=== PATIENT | female | born 1975 | race Two or more races ===

== ENCOUNTER 2024-03-21 14:29 | Emergency (ER) | payer BC, SELFPAY ==
[2024-03-21] VITALS (9 sets, daily range): BP systolic 95–143; BP diastolic 63–98; PULSE 83–115; RESP 13–20; TEMP 36.1–36.7; O2SAT 98–100; BMI 37.4
--- NOTE | 2024-03-21 14:30 | PC.NURSE ---
ARRIVED AT 1428. C/O NASAL BLEEDING FOR 2 HOURS. NASAL CLAMP PUT ON AT THE TRIAGE DESK BEFORE PT BROUGHT BACK TO ROOM 5
[2024-03-21] MEDS: SODIUM CHLORIDE 0.9% 1000 ML 1,000 ML 999 ML IV (15:00)
[2024-03-21] MEDS: OXYMETAZOLINE NAS SPRY 0.05% 15 ML BTL 2 SPRAY NASAL (15:14)
--- NOTE | 2024-03-21 15:14 | PC.NURSE ---
Addendum entered by Danielle Paul RN 03/21/24 15:40: RN reported to Hortencia Winters NP that pt still having moderate epistaxis on both nares at this time; Hortencia Winters [employer] at bedside, applying nasal packaging with Afrin on L nares at this time. Original Note: RN at bedside with [employer] Hortencia Winters Pt still having bilateral epistaxis, with worse epistaxis on the R nares. Nasal packaging with Afrin applied on R nares at this time.
[2024-03-21 15:27] LABS: Basophils # (Auto) 0.1 Thou/mm3 (0.0-0.2); Basophils % (Auto) 0 % (0-2.5); Eosinophils # (Auto) 0.3 Thou/mm3 (0.0-0.5); Eosinophils % (Auto) 2 % (0-10); Hematocrit 32.8 % (36.0-46.0); Hemoglobin 11.1 g/dL (12.0-16.0); Immature Granulocytes % (Auto) 1 % (0-0); Immature Granulocytes Auto 0.08 Thou/mm3 (0.00-0.00); Lymphocytes # (Auto) 5.3 Thou/mm3 (1.0-4.8); Lymphocytes % (Auto) 37 % (10-50); Mean Corpuscular HGB Conc 33.8 g/dl (31.0-37.0); Mean Corpuscular Hemoglobin 29.4 pg (25.0-35.0); Mean Corpuscular Volume 87 fL (80-100); Monocytes % (Auto) 7 % (0-12); Neutrophils # (Auto) 7.8 Thou/mm3 (1.8-7.7); Neutrophils % (Auto) 54 % (37-80); Nucleated Red Blood Cell % 0 /100 WBC (0); Platelet Count 374 Thou/mm3 (140-440); RDW Standard Deviation 41.3 fL (36.4-46.3); Red Blood Count 3.78 Miln/mm3 (4.00-5.20); White Blood Count 14.5 Thou/mm3 (3.6-11.0)
--- NOTE | 2024-03-21 15:30 | PC.NURSE ---
RN clarified with Hortencia Winters NP at this time if provider would like to order Tranexamic acid medication for pt; per Hortencia Winters NP, no Tranexamic acid to be give to pt at this time. Only pull out Afrin nasal spray for now.
[2024-03-21 15:33] LABS: Alanine Aminotransferase 19 U/L (10-49); Albumin, Serum 4.1 gm/dL (3.5-5.0); Albumin/Globulin Ratio 1.6 (1.2-2.2); Alkaline Phosphatase 94 U/L (46-116); Anion Gap 10 (7-16); Aspartate Amino Transferase 23 U/L (0-34); BUN/Creatinine Ratio 11 Ratio (12-20); Bilirubin,Total 0.9 mg/dL (0.3-1.2); Blood Urea Nitrogen 10 mg/dL (9-23); Chloride 107 mMol/L (98-107); Creatinine (Component) 0.9 mg/dL (0.6-1.3); Estimated Creatinine Clearance 90.5 mL/min (>60); Globulin 2.6 gm/dL (2.3-3.5); Glucose 176 mg/dL (74-106); Osmolality,Calculated 276 (275-295); Potassium 3.2 mMol/L (3.4-5.1); Sodium 137 mMol/L (136-145); Total Protein 6.7 gm/dL (5.7-8.2); eGFR > 60 See Note
[2024-03-21 15:34] LABS: Prothrombin Time 11.1 Seconds (9.0-12.2)
--- NOTE | 2024-03-21 15:48 | PD.EDEPIST ---
ED Epistaxis RME/HPI General Chief complaint: Epistaxis/Nasal Foreign Body Stated complaint: BLEEDING FROM NOSE, SEIZURE, VOMITING Time Seen by Provider: 03/21/24 14:31 Arrival date/time: 03/21/24 14:29 This is a 48 year old female that comes in with complaints of nosebleed. In triage there was question if patient had a possible seizure. Patient awake during the entire time that she was seen in the emergency room. Patient was pale in triage when nose is bleeding. Per patient has been patient was shaking. Patient extremely anxious upon arrival. Patient reports patient had surgery 20 February to repair a deviated septum. Patient states that she was having nosebleeds here and there but they would resolve. Patient states last night she started having a nosebleed and she finally got to stop at night. Patient stated this morning she started having a nosebleed and could not get it to stop. Patient reports that she use Afrin but it still did not stop. Patient has a history of requiring oxygen sometimes at home if her oxygen saturations drop. Patient states that she was never diagnosed with anything but was just told to use oxygen if she needs it at home. Patient also reports history of migraine headaches. Related Data Home Medications ?Medication ?Instructions ?Recorded ?Confirmed montelukast 10 mg tablet 10 mg PO QPM 09/16/19 02/03/24 (Singulair) omeprazole 40 mg capsule,delayed 40 mg PO DAILY 09/16/19 02/03/24 release rizatriptan 10 mg tablet (Maxalt) 10 mg PO Q2H PRN Migraine Headache 09/16/19 02/03/24 albuterol sulfate 2.5 mg/3 mL 2.5 mg continuous nebulization 02/03/24 02/03/24 (0.083 %) solution for nebulization DAILY PRN Wheezing azelastine 137 mcg (0.1 %) nasal 1 spray intranasal DAILY 02/03/24 02/03/24 spray epinephrine 0.3 mg/0.3 mL See Rx Instructions .Route .COMPLEX 02/03/24 02/03/24 injection, auto-injector fluticasone fur. 200 mcg-umeclid 1 inh inhalation DAILY 02/03/24 02/03/24 62.5 mcg-vilant 25 mcg inhalat.powder (Trelegy Ellipta) Previous Rx's ?Medication ?Instructions ?Recorded albuterol sulfate 90 mcg/actuation 2 puff inhalation Q4HR PRN dyspnea 07/16/16 aerosol inhaler (ProAir HFA) #1 inh ondansetron 4 mg disintegrating 4 mg PO Q6H PRN nausea and 03/21/24 tablet vomiting #14 tabs amoxicillin 500 mg tablet 500 mg PO TID #21 tabs 03/22/24 Allergies Allergy/AdvReac Type Severity Reaction Status Date / Time dexamethasone Allergy Severe Swelling Verified 03/21/24 14:49 of Lip/Tongue/Throat methylprednisolone Allergy Severe Swelling Verified 03/21/24 14:49 of Lip/Tongue/Throat topiramate Allergy Severe Difficulty Verified 03/21/24 14:49 Breathing Review of Systems Review of Systems Systems Reviewed: All systems reviewed, normal except as documented Past Medical History Past Medical History NEUROLOGIC: Positive Neurological Disorders and Migraine; Negative Seizures CARDIAC: Negative Cardiac Disorders or Congestive Heart Failure RESPIRATORY: Positive Chronic Obstructive Pulmonary Disease (COPD), Asthma and Bronchitis GASTROINTESTINAL: Positive Gastrointestinal Disorders, Gall Bladder Disease (LAP 06/2019) and Gastroesophageal Reflux Disease (HAS OMEPRAZOLE); Negative Hepatitis GENITOURINARY: Negative Genitourinary Disorders or Renal Disease REPRODUCTIVE: Positive Endometriosis and Previous Pregnancies MUSCULOSKELETAL: Positive Musculoskeletal Disorders ENDOCRINE: Negative Endocrine Disorders, Diabetes Mellitus Type 1 or Diabetes Mellitus Type 2 HEMATOLOGIC: Negative Blood Disorders OTHER HISTORY: 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,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)) and Chicken Pox; Negative Hospitalization, Shingles, Falls, Blood Transfusions, Anesthesia Reactions, Chemotherapy, Radiation Therapy, MRSA, Measles, Mumps or Cancer Family History FAMILY HISTORY: Positive Family Respiratory Disorders (FATHER (COPD)), Family Cardiac Disorders (FATHER (TN,HTN,CHOLESTEROL),SISTER (PROLAPSED VALVE)), Family Gastrointestinal Problems (MOTHER (ULCER)), Family Cancer (MOTHER (BLADDER),SISTER (THYROID)) and Family Surgery (FATHER,MOTHER,SISTER); Negative Family Psychiatric Problems or Family Anesthesia Reaction Surgical History SURGICAL: Positive Hysterectomy (PATIAL), Tubal Ligation and Section; Negative Cardiac Surgery Social History SMOKING STATUS: Never smoker ED Exam General General appearance: Present alert and other (mild distress ) Head Head exam: Present atraumatic Eye Eye exam: Present normal appearance, PERRL and EOMI ENT ENT exam: Present mucous membranes moist and other (nasel passages slightly swollen and erythemic, bleeding out of both sides ) Neck Neck exam: Present normal inspection, full ROM and trachea midline Chest Chest inspection: Present normal inspection and symmetric chest wall rise Respiratory Respiratory exam: Present normal lung sounds bilaterally Cardiovascular Cardiovascular exam: Present regular rate, normal rhythm and normal heart sounds Abdominal Exam Abdominal exam: Present soft and other (soft nontender ) Extremities Exam Extremities exam: Present normal inspection and full ROM Back Exam Back exam: Present normal inspection and full ROM Neurological Exam Neurological exam: Present alert and oriented X3 Psychiatric Psychiatric exam: Present normal affect and normal mood Skin Skin exam: Present warm, dry, intact and normal color Course Quality Measures none Orders Category Date Time Status CBC Stat Lab 03/21/24 15:05 Completed CBC Stat Lab 03/21/24 18:26 Completed Comprehensive Metabolic Panel Stat Lab 03/21/24 15:05 Completed PT [Prothrombin Time with INR] Stat Lab 03/21/24 15:05 Completed Path Review Blood Smear Stat Lab 03/21/24 15:05 Completed Type and Screen Stat Lab 03/21/24 16:00 Completed Acetaminophen Tab [Tylenol ES Tab] Med 03/21/24 19:55 Discontinued 1,000 mg PO X1 ONE Ondansetron Inj [Zofran Inj] Med 03/21/24 22:51 Discontinued 4 mg IV X1 ONE Oxymetazoline [place] 0.05% [Afrin Nasal [place]] Med 03/21/24 15:09 Discontinued 2 spray NASAL X1 ONE Oxymetazoline [place] 0.05% [Afrin Nasal [place]] Med 03/21/24 15:00 Discontinued See Dose Instructions NASAL X1 ONE Sodium Chloride 0.9% 1000 ml [Ns] 1,000 ml Med 03/21/24 15:00 Discontinued IV 999 mls/hr Tranexamic Acid 1,000 mg Ivpb [Tranexamic Acid Ivpb] Med 03/21/24 20:53 Discontinued 1,000 mg in 100 ml IV PRNMRX1 ceFAZolin/D5W 2 GM IV [Ancef 2gm Ivpb] Med 03/21/24 16:02 Discontinued 2 gm in 100 ml IV X1 Vital Signs Vital signs: Vital Signs Temperature 97 F 03/21/24 14:29 Pulse Rate 115 H 03/21/24 14:29 Respiratory Rate 19 03/21/24 14:29 Blood Pressure 119/98 H 03/21/24 14:29 Pulse Oximetry (%) 99 03/21/24 14:29 Oxygen Delivery Method Room Air 03/21/24 14:29 Epistaxis MDM Narrative MDM Narrative:: This is a 48 year old female that comes in with complaints of nosebleed. In triage there was question if patient had a possible seizure. Patient awake during the entire time that she was seen in the emergency room. Patient was pale in triage when nose is bleeding. Per patient has been patient was shaking. Patient extremely anxious upon arrival. Patient reports patient had surgery 20 February to repair a deviated septum. Patient states that she was having nosebleeds here and there but they would resolve. Patient states last night she started having a nosebleed and she finally got to stop at night. Patient stated this morning she started having a nosebleed and could not get it to stop. Patient reports that she use Afrin but it still did not stop. Patient has a history of requiring oxygen sometimes at home if her oxygen saturations drop. Patient states that she was never diagnosed with anything but was just told to use oxygen if she needs it at home. Patient also reports history of migraine headaches. Initially upon arrival, direct pressure held on nose to stop bleeding. Held pressure 2 different times 2 minutes each time and no success. I used afrin and placed right rhinorocket inside. Pt nose still bleeding. I had to place rhino rocket on the other side. Observed patient for a few hours. Pt given tylenol for pain and was given 1 liter iv fluids. Pt felt better. Nose was oozing. Pt having clots to the back of throat. After a few hours with rhino rockets I released pressure on the right rhino rocket. NO bleeding noted. I then did the same for the other side. I was able to remove bilateral rhino rockets. No more bleeding noted. Pt felt better. 155 I called [facility]. He stated he would prefer if patient didnt have bilateral rhino rockets if possible. He recommended antibiotics and stated he would see patient on Saturday morning first thing in the morning Labs show wbc 14.5 and hgb 11.1 initially and repeat 10.7. Pt was given iv fluids 1 liter. Pt was also given a dose of ancef 2gm iv. After rhino rockets removed we obseved patient for 2 hours and no more bleeding noted. Pt told to follow up as scheduled with ENT. Pt comfortable with dc. Patient data External records reviewed:: [facility] [place] previous records Clinical information provided by:: patient Social determinants that could affect healthcare access:: none Patient has the following chronic illnesses:: migraines How is presenting disease/condition affected by chronic disease/condition?: no chronic disease Evaluation data The following diagnostics were reviewed and interpreted by me:: lab results Lab and/or radiology exams considered but not ordered:: none Interpretation Summary: see note Medications / Prescriptions Medications or Prescriptions considered but not ordered:: none Medication administrations:: Medication Administration History Discontinued Medications Acetaminophen (Acetaminophen 500 Mg Tablet) 1,000 mg PO X1 ONE Stop: 03/21/24 19:56 Last Admin: 03/21/24 20:55 Dose: 1,000 mg Documented By: CCT Sodium Chloride (Ns) 1,000 mls @ 999 mls/hr IV .Q1H1M ONE Stop: 03/21/24 16:00 Last Infusion: 03/21/24 15:47 Dose: Infused Documented By: Admin: 03/21/24 15:00 Dose: 999 mls/hr Documented By: GM Cefazolin Sodium (Ancef 2gm Ivpb) 2 gm in 100 mls @ 200 mls/hr IV X1 ONE Stop: 03/21/24 16:31 Last Infusion: 03/21/24 17:10 Dose: Infused Documented By: Admin: 03/21/24 16:31 Dose: 200 mls/hr Documented By: GM Tranexamic Acid (Tranexamic Acid Ivpb) 1,000 mg in 100 mls @ 200 mls/hr IV [id number] PRN PRN Reason: BLEEDING Ondansetron HCl (Ondansetron Inj 2 Mg/Ml Inj 2 Ml) 4 mg IV X1 ONE; Protocol Stop: 03/21/24 22:52 Last Admin: 03/21/24 23:04 Dose: 4 mg Documented By: CCT Oxymetazoline HCl (Oxymetazoline [place] 0.05% 15 Ml Btl) 0 spray NASAL X1 ONE Stop: 03/21/24 15:01 Last Admin: 03/21/24 15:21 Dose: Not Given Documented By: GM Non-Admin Reason: Duplicate Medication on eMAR Oxymetazoline HCl (Oxymetazoline [place] 0.05% 15 Ml Btl) 2 spray NASAL X1 ONE Stop: 03/21/24 15:10 Last Admin: 03/21/24 15:14 Dose: 2 spray Documented By: KESHA Comments: Administered by Hortencia Winters NP via nasal packaging; bilateral nares see mar Consultations Consultation(s) initiated? (list below): No Diagnosis Most likely diagnosis given after review of the tests above:: epistaxis Admission Indicated Admission indicated?: not indicated Admission Request Was there a request for admission?: No Disposition Plan Disposition Plan: Discharge Discharge Attestation Discharge Attestation: The patient and all family members were given an opportunity to ask questions and understood the discharge instructions. Discharge instructions specifically effects, indications for sooner follow up or return to the emergency department, and the expected course of current diagnosis. Patient condition: Stable Discharge Plan Plan Patient Disposition: HOME (Self Care) Patient condition on transfer: Stable Prescriptions/Referrals Prescriptions/Med Rec: New ondansetron 4 mg tablet,disintegrating 4 mg PO Q6H PRN (Reason: nausea and vomiting) Qty: 14 0RF No Action albuterol sulfate [ProAir HFA] 8.5 GM HFA aerosol inhaler 2 puff Inhalation Q4HR PRN (Reason: dyspnea) Qty: 1 0RF Rx Instructions: any albuterol ok; dispense with spacer omeprazole 40 mg Capsule,Delayed Release(Dr/Ec) 40 mg PO DAILY montelukast [Singulair] 10 mg Tablet 10 mg PO QPM rizatriptan [Maxalt] 10 mg Tablet 10 mg PO Q2H PRN (Reason: Migraine Headache) albuterol sulfate 2.5 mg /3 mL (0.083 %) solution for nebulization 2.5 mg continuous nebulization DAILY PRN (Reason: Wheezing) azelastine 137 mcg (0.1 %) spray,non-aerosol 1 spray INTRANASAL DAILY Patient Comments: USE 2 SPRAYS INTO EACH NOSTRIL EVERY DAY AT BEDTIME epinephrine 0.3 mg/0.3 mL auto-injector See Rx Instructions .ROUTE .COMPLEX Patient Comments: PLEASE SEE ATTACHED FOR DETAILED DIRECTIONS Rx Instructions: as needed for allergic reaction Trelegy Ellipta 200-62.5-25 mcg blister with device 1 inh INHALATION DAILY Patient Comments: INHALE 1 PUFF BY MOUTH EVERY DAY amoxicillin 500 mg tablet 500 mg PO TID Qty: 21 0RF Referrals: Rasta Rodríguez FNP [Primary Care Provider] - In 1 week Problem List Clinical Impression: Epistaxis Patient/Caregiver Discharge Instructions Discharge Activity: activity as tolerated Education Materials: ED Epistaxis (Adult) Additional Instructions: Please follow-up with ENT as discussed 03/23/24. Please call doctors office first thing in the morning and let them know that you were in the emergency room for a nosebleed and that the emergency room spoke to who is on-call. Come back to the emergency room if symptoms change or worsen Print Language: Malay Stand Alone Forms: Kandy Award Info., Patient Portal Info Letter PA/DIRECT ENTRY MIDWIFE Supervising Physician PA/DIRECT ENTRY MIDWIFE Supervising Physician: john
[2024-03-21] MEDS: ceFAZolin/D5W 2 GM IV 2 GM/100 ML BAG IV (16:31)
--- NOTE | 2024-03-21 16:31 | PC.NURSE ---
pt had small, soft bm on bedpan
--- NOTE | 2024-03-21 17:10 | PC.NURSE ---
@1710- Pt requesting to be placed in bedpan for bowel movement; RN at bedside placing pt on bedpan. RN educated pt that RN will be stepping out fro pt's privacy and to use call light to ask for RN back when pt is done with BM. @1720- RN at bedside after noticing pt's call light is on. RN performed linen change and perineal care with bath wipes for pt.
[2024-03-21 18:59] LABS: Basophils # (Auto) 0.1 Thou/mm3 (0.0-0.2); Basophils % (Auto) 0 % (0-2.5); Eosinophils % (Auto) 0 % (0-10); Hematocrit 32.1 % (36.0-46.0); Hemoglobin 10.7 g/dL (12.0-16.0); Immature Granulocytes % (Auto) 1 % (0-0); Lymphocytes # (Auto) 1.8 Thou/mm3 (1.0-4.8); Lymphocytes % (Auto) 10 % (10-50); Mean Corpuscular HGB Conc 33.3 g/dl (31.0-37.0); Mean Corpuscular Hemoglobin 29.6 pg (25.0-35.0); Mean Corpuscular Volume 89 fL (80-100); Monocytes # (Auto) 0.7 Thou/mm3 (0.0-0.8); Monocytes % (Auto) 4 % (0-12); Neutrophils # (Auto) 15.4 Thou/mm3 (1.8-7.7); Neutrophils % (Auto) 85 % (37-80); Nucleated Red Blood Cell % 0 /100 WBC (0); Platelet Count 332 Thou/mm3 (140-440); RDW Standard Deviation 43.7 fL (36.4-46.3); Red Blood Count 3.61 Miln/mm3 (4.00-5.20); White Blood Count 18.1 Thou/mm3 (3.6-11.0)
[2024-03-21] MEDS: ACETAMINOPHEN 500 MG TABLET 1000 MG PO (20:55)
[2024-03-21] MEDS: ONDANSETRON INJ 2 MG/ML INJ 2 ML 4 MG IV (23:04)
[2024-03-22 04:36] LABS: Path Review Blood Smear Sent to Pathologist
== END 2024-03-21 23:50 | disposition home or self-care (01) ==
PROVIDERS: Nurse Practitioner Family; Emergency Provider Emergency Medicine; PCP Family Medicine
DX: R04.0 Epistaxis (principal)
CPT/HCPCS: 30901; 36415; 80053; 85025; 85610; 86850; 86900; 86901; 96361; 96365; 99284; J0689; J2405; J3490; J7030; A9270; J0690

== ENCOUNTER 2024-03-22 16:31 | Emergency (ER) | payer BC, SELFPAY ==
[2024-03-22 16:40] VITALS: BP 134/87; PULSE 144; RESP 19; TEMP 36.8; O2SAT 100
[2024-03-22 16:45] VITALS: BP 116/61; PULSE 126; RESP 16; O2SAT 100
--- NOTE | 2024-03-22 16:45 | PC.NURSE ---
pt here with c/o bleeding from nose for the past 1 hour
[2024-03-22 16:49] VITALS: PULSE 163; BMI 36.6
--- NOTE | 2024-03-22 16:50 | PC.NURSE ---
dr. thakkar in to place tongue blade clamp to nose to controll bleeding
--- NOTE | 2024-03-22 17:05 | PD.EDRME ---
Rapid Medical Screening Exam RME Arrival date/time: 03/22/24 16:31 Chief Complaint: Epistaxis/Nasal Foreign Body Time Seen by Provider: 03/22/24 17:04 Vital signs: Vital Signs Temperature 98.3 F 03/22/24 16:40 Pulse Rate 144 H 03/22/24 16:40 Respiratory Rate 19 03/22/24 16:40 Blood Pressure 134/87 H 03/22/24 16:40 Pulse Oximetry (%) 100 03/22/24 16:40 Oxygen Delivery Method Room Air 03/22/24 16:40 RME Narrative: 48-year-old female, seen yesterday for epistaxis status post nasal septal surgery who presents with recurrence of her epistaxis. She arrived by EMS due to the volume of bleeding. On exam she has slow oozing from her right nares, mucous membranes are pink and without pallor. I have completed a focused encounter and examination, appropriate focused testing has been ordered, and she will be seen by the additional provider.
--- NOTE | 2024-03-22 17:47 | PC.NURSE ---
@1747- Pt starting to bleed from bilateral nares and bilateral eyes; Dr. Villafana made aware and verbal orders received. @1750- Dr. Villafana at bedside applying nasal packaging doused with Andrew-synephrine nasal spray bilaterally. Bleeding controlled at this time.
[2024-03-22] MEDS: PHENYLEPHRINE 1% NASAL (17:50)
[2024-03-22 18:00] LABS: Basophils # (Auto) 0.1 Thou/mm3 (0.0-0.2); Basophils % (Auto) 1 % (0-2.5); Eosinophils # (Auto) 0.1 Thou/mm3 (0.0-0.5); Eosinophils % (Auto) 1 % (0-10); Hematocrit 24.6 % (36.0-46.0); Immature Granulocytes % (Auto) 1 % (0-0); Immature Granulocytes Auto 0.06 Thou/mm3 (0.00-0.00); Lymphocytes # (Auto) 2.9 Thou/mm3 (1.0-4.8); Lymphocytes % (Auto) 28 % (10-50); Mean Corpuscular HGB Conc 33.7 g/dl (31.0-37.0); Mean Corpuscular Hemoglobin 30.1 pg (25.0-35.0); Mean Corpuscular Volume 89 fL (80-100); Monocytes # (Auto) 0.8 Thou/mm3 (0.0-0.8); Monocytes % (Auto) 7 % (0-12); Neutrophils # (Auto) 6.7 Thou/mm3 (1.8-7.7); Neutrophils % (Auto) 63 % (37-80); Nucleated Red Blood Cell % 0 /100 WBC (0); Platelet Count 265 Thou/mm3 (140-440); RDW Standard Deviation 43.9 fL (36.4-46.3); Red Blood Count 2.76 Miln/mm3 (4.00-5.20); White Blood Count 10.6 Thou/mm3 (3.6-11.0)
[2024-03-22 18:03] LABS: Hemoglobin 8.3 g/dL (12.0-16.0)
[2024-03-22] MEDS: ONDANSETRON INJ 2 MG/ML INJ 2 ML 4 MG IV (18:41)
--- NOTE | 2024-03-22 18:51 | PD.EDEPIST ---
ED Epistaxis RME/HPI General Chief complaint: Epistaxis/Nasal Foreign Body Stated complaint: NOSE BLEED Time Seen by Provider: 03/22/24 17:04 Arrival date/time: 03/22/24 16:31 Limitations: no limitations RME / HPI RME / HPI Narrative: 48-year-old female, seen yesterday for epistaxis status post nasal septal surgery who presents with recurrence of her epistaxis. She arrived by EMS due to the volume of bleeding. On exam she has slow oozing from her right nares, mucous membranes are pink and without pallor. I have completed a focused encounter and examination, appropriate focused testing has been ordered, and she will be seen by the additional provider. ----- Dr. Pearson's Main ED Evaluation: 48-year-old female status post right nasal septal surgery on February [address] Octavio Mayberry in [place] presenting with nosebleeding at the right naris. The patient was seen yesterday in the emergency department for similar in which she was packed bilaterally. In the emergency department today , packed both sides and the bleeding has stopped. Patient is continued to be nauseous Related Data Home Medications ?Medication ?Instructions ?Recorded ?Confirmed montelukast 10 mg tablet 10 mg PO QPM 09/16/19 02/03/24 (Singulair) omeprazole 40 mg capsule,delayed 40 mg PO DAILY 09/16/19 02/03/24 release rizatriptan 10 mg tablet (Maxalt) 10 mg PO Q2H PRN Migraine Headache 09/16/19 02/03/24 albuterol sulfate 2.5 mg/3 mL 2.5 mg continuous nebulization 02/03/24 02/03/24 (0.083 %) solution for nebulization DAILY PRN Wheezing azelastine 137 mcg (0.1 %) nasal 1 spray intranasal DAILY 02/03/24 02/03/24 spray epinephrine 0.3 mg/0.3 mL See Rx Instructions .Route .COMPLEX 02/03/24 02/03/24 injection, auto-injector fluticasone fur. 200 mcg-umeclid 1 inh inhalation DAILY 02/03/24 02/03/24 62.5 mcg-vilant 25 mcg inhalat.powder (Trelegy Ellipta) Previous Rx's ?Medication ?Instructions ?Recorded albuterol sulfate 90 mcg/actuation 2 puff inhalation Q4HR PRN dyspnea 07/16/16 aerosol inhaler (ProAir HFA) #1 inh ondansetron 4 mg disintegrating 4 mg PO Q6H PRN nausea and 03/21/24 tablet vomiting #14 tabs amoxicillin 500 mg tablet 500 mg PO TID #21 tabs 03/22/24 Allergies Allergy/AdvReac Type Severity Reaction Status Date / Time dexamethasone Allergy Severe Swelling Verified 03/21/24 14:49 of Lip/Tongue/Throat methylprednisolone Allergy Severe Swelling Verified 03/21/24 14:49 of Lip/Tongue/Throat topiramate Allergy Severe Difficulty Verified 03/21/24 14:49 Breathing Review of Systems Review of Systems Systems Reviewed: All systems reviewed, normal except as documented Past Medical History Past Medical History NEUROLOGIC: Positive Neurological Disorders and Migraine; Negative Seizures CARDIAC: Negative Cardiac Disorders or Congestive Heart Failure RESPIRATORY: Positive Chronic Obstructive Pulmonary Disease (COPD), Asthma and Bronchitis GASTROINTESTINAL: Positive Gastrointestinal Disorders, Gall Bladder Disease (LAP 06/2019) and Gastroesophageal Reflux Disease (HAS OMEPRAZOLE); Negative Hepatitis GENITOURINARY: Negative Genitourinary Disorders or Renal Disease REPRODUCTIVE: Positive Endometriosis and Previous Pregnancies MUSCULOSKELETAL: Positive Musculoskeletal Disorders ENDOCRINE: Negative Endocrine Disorders, Diabetes Mellitus Type 1 or Diabetes Mellitus Type 2 HEMATOLOGIC: Negative Blood Disorders OTHER HISTORY: 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,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)) and Chicken Pox; Negative Hospitalization, Shingles, Falls, Blood Transfusions, Anesthesia Reactions, Chemotherapy, Radiation Therapy, MRSA, Measles, Mumps or Cancer Family History FAMILY HISTORY: Positive Family Respiratory Disorders (FATHER (COPD)), Family Cardiac Disorders (FATHER (NE,HTN,CHOLESTEROL),SISTER (PROLAPSED VALVE)), Family Gastrointestinal Problems (MOTHER (ULCER)), Family Cancer (MOTHER (BLADDER),SISTER (THYROID)) and Family Surgery (FATHER,MOTHER,SISTER); Negative Family Psychiatric Problems or Family Anesthesia Reaction Surgical History SURGICAL: Positive Hysterectomy (PATIAL), Tubal Ligation and Section; Negative Cardiac Surgery Social History SMOKING STATUS: Never smoker ED Exam Narrative Physical exam: supervises bilateral nasal packing in place patient tolerating.. Minimal to no bleeding is noted at this point. General Limitations: Present no limitations General appearance: Present alert and other (Minimal distress.) Head Head exam: Present atraumatic Eye Eye exam: Present EOMI ENT ENT exam: Present normal exam Expanded ENT Exam Nose exam: Present other (Both nasal airways are packed with Rhino Rocket's.) Mouth exam: Present other (No blood in the back of the throat. No trismus.) Neck Neck exam: Present normal inspection, full ROM and trachea midline Chest Chest inspection: Present normal inspection and symmetric chest wall rise Respiratory Respiratory exam: Present normal lung sounds bilaterally Cardiovascular Cardiovascular exam: Present regular rate, normal rhythm and normal heart sounds Abdominal Exam Abdominal exam: Present soft and normal bowel sounds Extremities Exam Extremities exam: Present normal inspection and full ROM Back Exam Back exam: Present normal inspection and full ROM Neurological Exam Neurological exam: Present alert and other (Awake talking in full sentences) Psychiatric Psychiatric exam: Present normal affect and normal mood Skin Skin exam: Present warm, dry, intact and normal color Course Quality Measures none Orders Category Date Time Status CBC Stat Lab 03/22/24 17:48 Completed PT [Prothrombin Time with INR] Stat Lab 03/22/24 20:50 Completed PTT [Partial Thromboplastin Time] Stat Lab 03/22/24 20:50 Completed Type and Screen Stat Lab 03/22/24 20:50 Completed Morphine Inj Med 03/22/24 22:57 Discontinued 2 mg IVP X1 ONE Ondansetron Inj [Zofran Inj] Med 03/22/24 18:13 Discontinued 4 mg IV X1 ONE Phenylephrine Papo Blythe 1% [Andrew-synephrine Papo Blythe 1% Med 03/22/24 17:48 Discontinued ] 2 spray NASAL X1 ONE Piper/Tazo Inj [Zosyn Inj] 3.375 gm Med 03/22/24 20:36 Pending Sodium Chloride 0.9% (P) [Ns 0.9% (P)] 50 ml IV Q6HR Piper/Tazo Inj [Zosyn Inj] 3.375 gm Med 03/22/24 21:00 Discontinued Sodium Chloride 0.9% (P) [Ns 0.9% (P)] 50 ml IV X1 Tranexamic Acid Inj Med 03/22/24 20:23 Discontinued 1,000 mg IV X1 ONE Vital Signs Vital signs: Vital Signs Temperature 98.3 F 03/22/24 16:40 Pulse Rate 144 H 03/22/24 16:40 Respiratory Rate 19 03/22/24 16:40 Blood Pressure 134/87 H 03/22/24 16:40 Pulse Oximetry (%) 100 03/22/24 16:40 Oxygen Delivery Method Room Air 03/22/24 16:40 Pulse ox is 100% on room air, which is normal according to my interpretation. Epistaxis MDM Narrative MDM Narrative:: This is a 48-year-old female status post right nasal septal surgery done in [place] on February 20 with second visit for bleeding. The patient was seen yesterday at approximately 6 PM and she had bilateral nasal packing done.. Bleeding was controlled and the nasal packing was removed. The patient went home and was doing well till this morning. The patient is slightly tachycardic at 119. Otherwise hemoglobin is 8 and hematocrit is 24. This is a slight decrease from previous when her hemoglobin was 10 On arrival to the emergency department the bilateral Rhino Rocket's were already placed by the previous ER physician. TXA is given and the patient remains stable at this time. Zosyn is given. After discussion with ENT yesterday for the next practitioner note the patient should not have bilateral Rhino Rocket's in place secondary to her nasal surgery however it appears that when she has right sided nasal bleeding it backs up and goes over to her left nasal so at this time I need to have both packed. Patient is hemodynamically stable. The patient continually requested nurse to change the tape on her face and at this time I feel that this is manipulating the packing which can cause more bleeding. TXA is given. 2100: [facility] is paged. They request that I call Dr. Schaefer. Discussed with the covering physician for ENT for Dr. Schaefer's office and at this time he feels that the packing on both sides should stay in until he sees Silvano tomorrow. Discussed with the patient. She is complaining of some pressure in her face. Will give morphine for comfort and as long as she no longer has bleeding which she is not having then we will be able to send her home. Patient data External records reviewed:: [facility] previous records (Per chart review, patient was seen here yesterday for epistaxis.) Clinical information provided by:: patient Social determinants that could affect healthcare access:: none Patient has the following chronic illnesses:: COPD, asthma How is presenting disease/condition affected by chronic disease/condition?: uneffected by Evaluation data The following diagnostics were reviewed and interpreted by me:: lab results Lab and/or radiology exams considered but not ordered:: none Interpretation Summary: HnH is 8.3.6, compared to yesterday is lower (was 10.7/32.1) Medications / Prescriptions Medications or Prescriptions considered but not ordered:: none Medication administrations:: Medication Administration History Piperacillin Sod/Tazobactam (Sod 3.375 gm/ Sodium Chloride) 50 mls @ 100 mls/hr IV Q6HR MARICRUZ Stop: 03/29/24 20:35 Discontinued Medications Piperacillin Sod/Tazobactam (Sod 3.375 gm/ Sodium Chloride) 50 mls @ 100 mls/hr IV X1 ONE Stop: 03/22/24 21:29 Last Infusion: 03/22/24 23:20 Dose: Infused Documented By: Admin: 03/22/24 22:45 Dose: 100 mls/hr Documented By: JOSE Morphine Sulfate (Morphine Sulf Inj 10 Mg/Ml Vial) 2 mg IVP X1 ONE Stop: 03/22/24 22:58 Last Admin: 03/22/24 23:16 Dose: 2 mg Documented By: JOSE Ondansetron HCl (Ondansetron Inj 2 Mg/Ml Inj 2 Ml) 4 mg IV X1 ONE; Protocol Stop: 03/22/24 18:14 Last Admin: 03/22/24 18:41 Dose: 4 mg Documented By: JOSE Phenylephrine HCl (Phenylephrine Papo Blythe 1% 20 Blythe/15 Ml Btl) 2 spray NASAL X1 ONE Stop: 03/22/24 17:49 Last Admin: 03/22/24 17:50 Dose: 15 ml Documented By: KESHA Comments: by Provider Dr. Villafana Tranexamic Acid (Tranexamic Acid Inj 1,000 Mg/10 Ml Vial) 1,000 mg IV X1 ONE Stop: 03/22/24 20:24 Last Admin: 03/22/24 20:23 Dose: 1,000 mg Documented By: JOSE see above Consultations Consultation(s) initiated? (list below): Yes Consultation #1 (Physician, Specialty, Details): Covering physician for Dr Lana Campos. He agrees with the plan and the patient can follow-up tomorrow morning for thing in the morning. Recommends amoxicillin. Diagnosis Epistaxis Differential Diagnosis: anterior epistaxis, posterior epistaxis and other (anemia) Most likely diagnosis given after review of the tests above:: see below Admission Indicated Admission indicated?: not indicated Admission Request Was there a request for admission?: No Disposition Plan Disposition Plan: Discharge Discharge Attestation Discharge Attestation: The patient and all family members were given an opportunity to ask questions and understood the discharge instructions. Discharge instructions specifically effects, indications for sooner follow up or return to the emergency department, and the expected course of current diagnosis. Patient condition: Stable Critical Care Time Critical Care Time Critical Care Time: Yes Total Critical Care Time (min.): 35 Attestation: The high probability of sudden, clinically significant deterioration in the patient?s condition required the highest level of my preparedness to intervene urgently. The services I provided to this patient were to treat and/or prevent clinically significant deterioration. Services included the following: chart data review, reviewing nursing notes and/or old charts, documentation time, construction safety consultant collaboration regarding findings and treatment options, medication orders and management, direct patient care, vital sign assessments and ordering, interpreting and reviewing diagnostic studies and lab tests. Aggregate critical care time includes only time during which I was engaged in work directly related to the patient?s care, as described above, whether at bedside or elsewhere in the Emergency Department. It did not include time spent performing other reported procedures or the services of residents, students, nurses or physician assistants. Discharge Plan Plan Patient Disposition: HOME (Self Care) Patient condition on transfer: Stable Prescriptions/Referrals Prescriptions/Med Rec: New amoxicillin 500 mg tablet 500 mg PO TID Qty: 21 0RF No Action albuterol sulfate [ProAir HFA] 8.5 GM HFA aerosol inhaler 2 puff Inhalation Q4HR PRN (Reason: dyspnea) Qty: 1 0RF Rx Instructions: any albuterol ok; dispense with spacer omeprazole 40 mg Capsule,Delayed Release(Dr/Ec) 40 mg PO DAILY montelukast [Singulair] 10 mg Tablet 10 mg PO QPM rizatriptan [Maxalt] 10 mg Tablet 10 mg PO Q2H PRN (Reason: Migraine Headache) albuterol sulfate 2.5 mg /3 mL (0.083 %) solution for nebulization 2.5 mg continuous nebulization DAILY PRN (Reason: Wheezing) azelastine 137 mcg (0.1 %) spray,non-aerosol 1 spray INTRANASAL DAILY Patient Comments: USE 2 SPRAYS INTO EACH NOSTRIL EVERY DAY AT BEDTIME epinephrine 0.3 mg/0.3 mL auto-injector See Rx Instructions .ROUTE .COMPLEX Patient Comments: PLEASE SEE ATTACHED FOR DETAILED DIRECTIONS Rx Instructions: as needed for allergic reaction Nima Ellipta 200-62.5-25 mcg blister with device 1 inh INHALATION DAILY Patient Comments: INHALE 1 PUFF BY MOUTH EVERY DAY ondansetron 4 mg tablet,disintegrating 4 mg PO Q6H PRN (Reason: nausea and vomiting) Qty: 14 0RF Referrals: Abdullahi Duenas MD [Primary Care Provider] - In 1 week Problem List Clinical Impression: S/P surgery on nasal septum, Acute anterior epistaxis Patient/Caregiver Discharge Instructions Print Language: German Stand Alone Forms: Kandy Award Info., Patient Portal Info Letter
[2024-03-22 19:22] VITALS: BP 175/99; PULSE 119; RESP 18; TEMP 37.2; O2SAT 99
[2024-03-22] MEDS: TRANEXAMIC ACID INJ 1,000 MG/10 ML VIAL 1000 MG IV (20:23)
[2024-03-22 21:16] LABS: Partial Thromboplastin Time 21.9 Seconds (22.0-36.0); Prothrombin Time 11.4 Seconds (9.0-12.2)
[2024-03-22] MEDS: PIPER/TAZO INJ 3.375 GM in SODIUM CHLORIDE 0.9% (P) 50 ML IV (22:45)
[2024-03-22] MEDS: MORPHINE SULF INJ 10 MG/ML VIAL 2 MG IVP (23:16)
[2024-03-23 00:02] VITALS: PULSE 118; RESP 18; O2SAT 100
== END 2024-03-23 00:03 | disposition home or self-care (01) ==
PROVIDERS: Emergency Medicine; Emergency Provider Emergency Medicine; PCP Specialist
DX: R04.0 Epistaxis (principal); Z98.890 Other specified postprocedural states
CPT/HCPCS: 30901; 36415; 85025; 85610; 85730; 86850; 86900; 86901; 96365; J2270; J2405; J2543; J3490; J7050; A9270

== ENCOUNTER 2024-03-29 11:34 | Emergency (ER) | payer BC, SELFPAY ==
[2024-03-29 11:43] VITALS: PULSE 110; RESP 16; O2SAT 97
[2024-03-29 11:48] VITALS: BP 129/84; PULSE 117; RESP 19; TEMP 36.9; O2SAT 100
[2024-03-29 11:50] VITALS: BMI 36.6
--- NOTE | 2024-03-29 11:52 | PC.NURSE ---
PATIENT BROUGHT IN VIA EMS FOR COMPLAINT OF NOSE BLEED FOR 20 MINUTES. PATIENT STATES SHE HAD SEPTUM SURGERY ON 02/20. PATIENT STATES SHE HAS BEEN HAVING BLEEDING ISSUES THE LAST WEEK AND WAS SEEN IN ER LAST SAT AND SUN WITH BLEEDING. PATIENT STATES SHE FOLLOWED UP WITH ENT SURGEON ON LAST SATURDAY AND WAS CAUTERIZED WITH RELIEF. PATIENT STATES TODAY SHE WAS SITTING ON COUCH NON STRAINING AND NOSE STARTED BLEEDING. NOSE CLAMP APPLIED UPON ARRIVAL TO ED, BLEEDING SLOWED, PATIENT STATES SHE STILL FEELS BLOOD IN THROAT. WILL CONTINUE TO MONITOR.
--- NOTE | 2024-03-29 12:06 | PD.EDADULT ---
ED General RME/HPI General Chief complaint: Epistaxis/Nasal Foreign Body Stated complaint: NOSE BLEED Time Seen by Provider: 03/29/24 11:41 Arrival date/time: 03/29/24 11:34 Epistaxis HPI onset this morning, the patient has been seen here on the after having nasal surgery which include packing February [address] Buster Mayberry, out of [facility]. The patient continues to have bleeding problems. The patient states that 5 days ago the patient was at Dr. Mayberry's [place] office where the nose was repacked with dissolvable packing, and anticoagulation medication put in there. The patient states she woke up this morning, and states that she noted bleeding stating it is coming from both nostrils. The patient is very anxious. Patient is scheduled to see ENT Dr. Mayberry in 3 days. Related Data Home Medications ?Medication ?Instructions ?Recorded ?Confirmed montelukast 10 mg tablet 10 mg PO QPM 09/16/19 02/03/24 (Singulair) omeprazole 40 mg capsule,delayed 40 mg PO DAILY 09/16/19 02/03/24 release rizatriptan 10 mg tablet (Maxalt) 10 mg PO Q2H PRN Migraine Headache 09/16/19 02/03/24 albuterol sulfate 2.5 mg/3 mL 2.5 mg continuous nebulization 02/03/24 02/03/24 (0.083 %) solution for nebulization DAILY PRN Wheezing azelastine 137 mcg (0.1 %) nasal 1 spray intranasal DAILY 02/03/24 02/03/24 spray epinephrine 0.3 mg/0.3 mL See Rx Instructions .Route .COMPLEX 02/03/24 02/03/24 injection, auto-injector fluticasone fur. 200 mcg-umeclid 1 inh inhalation DAILY 02/03/24 02/03/24 62.5 mcg-vilant 25 mcg inhalat.powder (Trelegy Ellipta) Previous Rx's ?Medication ?Instructions ?Recorded albuterol sulfate 90 mcg/actuation 2 puff inhalation Q4HR PRN dyspnea 07/16/16 aerosol inhaler (ProAir HFA) #1 inh ondansetron 4 mg disintegrating 4 mg PO Q6H PRN nausea and 03/21/24 tablet vomiting #14 tabs amoxicillin 500 mg tablet 500 mg PO TID #21 tabs 03/22/24 Allergies Allergy/AdvReac Type Severity Reaction Status Date / Time dexamethasone Allergy Severe Swelling Verified 03/21/24 14:49 of Lip/Tongue/Throat methylprednisolone Allergy Severe Swelling Verified 03/21/24 14:49 of Lip/Tongue/Throat topiramate Allergy Severe Difficulty Verified 03/21/24 14:49 Breathing Review of Systems Review of Systems Narrative Review of Systems: [General: Obese, anxious, not in any acute distress Head normocephalic HEENT: Nose: Patient has serous thin red drops emerging from appears to be the left nares. Patient denies swallowing blood. All other subsystems of HEENT are within acceptable limits Neck is supple nontender Chest equal chest rise nontender to palpation Respiratory: Clear to auscultation no wheezes crackles or rubs CV: Rate rhythm is regular no murmurs rubs or clicks Abdomen is soft nontender no masses positive bowel sounds all 4 quadrants Back: No CVA tenderness no spinous process tenderness from cervical spine thoracic and lumbar spine Skin: Intact no petechiae rash induration ulceration or crepitus Extremities: Moving all extremity against resistance cap refill less than 2 seconds neurosensory intact Neuro: Awake alert oriented x3 Glascow coma 15 no focal deficits] Course Course Course Narrative: Patient reassessed at 1445, there is no active bleeding the cotton balls soaked in TXA continue to remain in both nares the left side is blood-tinged but not leaking into the face, the patient's posterior pharynx is clear she is not swallowing any blood. At this time I will continue to observe the patient for another 45 minutes if there is no bleeding the patient will be discharged home. Reassessment of this patient at 1600, the patient's bleeding has stopped there is thick mucus that is blood-tinged in both nares cotton balls were removed. This time patient be discharged home she is made aware that she is anemic. It was advised to return if after clamping the nose twice for 20 minutes each time and the epistaxis continues. Quality Measures none Orders Category Date Time Status CBC Stat Lab 03/29/24 12:15 Completed Tranexamic Acid Inj Med 03/29/24 12:15 Discontinued 1,000 mg INH X1 ONE Vital Signs Vital signs: Vital Signs Temperature 98.5 F 03/29/24 11:48 Pulse Rate 117 H 11/24/24 11:48 Respiratory Rate 19 03/29/24 11:48 Blood Pressure 129/84 03/29/24 11:48 Pulse Oximetry (%) 100 03/29/24 11:48 Oxygen Delivery Method Room Air 03/29/24 11:48 [facility] Patient data External records reviewed:: [facility] previous records Clinical information provided by:: patient Social determinants that could affect healthcare access:: none Patient has the following chronic illnesses:: Nasal surgery by Dr. Mayberry, February 20 How is presenting disease/condition affected by chronic disease/condition?: uneffected by Evaluation data The following diagnostics were reviewed and interpreted by me:: lab results Lab and/or radiology exams considered but not ordered:: CBC shows anemia of hemoglobin of 7.2 Interpretation Summary: Epistaxis with anemia Medications Medications considered but not ordered:: None Medication administrations:: Medication Administration History Discontinued Medications Tranexamic Acid (Tranexamic Acid Inj 1,000 Mg/10 Ml Vial) 1,000 mg INH X1 ONE Stop: 03/29/24 12:16 Last Admin: 03/29/24 13:11 Dose: 1,000 mg Documented By: BETO None Consultations Consultation(s) initiated? (list below): No Diagnosis Differential Diagnosis ED Complaint MDM: Anterior epistaxis posterior epistaxis anemia Most likely diagnosis given after review of the tests above:: Epistaxis anemia Admission Indicated Admission indicated?: not indicated Explain why admission is indicated or not indicated:: Stable to outpatient follow-up with ENT as stated Admission Request Was there a request for admission?: No Disposition Plan Disposition Plan: Discharge Discharge Attestation Discharge Attestation: The patient and all family members were given an opportunity to ask questions and understood the discharge instructions. Discharge instructions specifically effects, indications for sooner follow up or return to the emergency department, and the expected course of current diagnosis. Patient condition: Stable Medical Decision Making Differential Diagnosis Differential Diagnosis: Anterior epistaxis posterior epistaxis anemia Lab Data 03/29/24 12:15 Labs: Lab Results 03/29/24 Range/Units 12:15 WBC 8.1 (3.6-11.0) Thou/mm3 RBC 2.39 L (4.00-5.20) Miln/mm3 Hgb 7.2 L (12.0-16.0) g/dL Hct 21.6 L* (36.0-46.0) % MCV 90 (80-100) fL MCH 30.1 (25.0-35.0) pg MCHC 33.3 (31.0-37.0) g/dl RDW Std Deviation 46.9 H (36.4-46.3) fL Plt Count 379 D (140-440) Thou/mm3 Neut % (Auto) 67 (37-80) % Lymph % (Auto) 23 (10-50) % Glascock % (Auto) 5 (0-12) % Eos % (Auto) 3 (0-10) % Baso % (Auto) 0 (0-2.5) % Neut # (Auto) 5.4 (1.8-7.7) Thou/mm3 Lymph # (Auto) 1.9 (1.0-4.8) Thou/mm3 Glascock # (Auto) 0.4 (0.0-0.8) Thou/mm3 Eos # (Auto) 0.2 (0.0-0.5) Thou/mm3 Baso # (Auto) 0.0 (0.0-0.2) Thou/mm3 Immature Gran # (Auto) 0.07 H (0.00-0.00) Thou/mm3 Absolute Nucleated RBC 0.03 H (0.00-0.00) Thou/mm3 Immature Gran % 1 H (0-0) % Nucleated RBC % 0 (0) /100 WBC Discharge Plan Plan Patient Disposition: HOME (Self Care) Patient condition on transfer: Stable Prescriptions/Referrals Prescriptions/Med Rec: No Action albuterol sulfate [ProAir HFA] 8.5 GM HFA aerosol inhaler 2 puff Inhalation Q4HR PRN (Reason: dyspnea) Qty: 1 0RF Rx Instructions: any albuterol ok; dispense with spacer omeprazole 40 mg Capsule,Delayed Release(Dr/Ec) 40 mg PO DAILY montelukast [Singulair] 10 mg Tablet 10 mg PO QPM rizatriptan [Maxalt] 10 mg Tablet 10 mg PO Q2H PRN (Reason: Migraine Headache) albuterol sulfate 2.5 mg /3 mL (0.083 %) solution for nebulization 2.5 mg continuous nebulization DAILY PRN (Reason: Wheezing) azelastine 137 mcg (0.1 %) spray,non-aerosol 1 spray INTRANASAL DAILY Patient Comments: USE 2 SPRAYS INTO EACH NOSTRIL EVERY DAY AT BEDTIME epinephrine 0.3 mg/0.3 mL auto-injector See Rx Instructions .ROUTE .COMPLEX Patient Comments: PLEASE SEE ATTACHED FOR DETAILED DIRECTIONS Rx Instructions: as needed for allergic reaction Trelegy Ellipta 200-62.5-25 mcg blister with device 1 inh INHALATION DAILY Patient Comments: INHALE 1 PUFF BY MOUTH EVERY DAY ondansetron 4 mg tablet,disintegrating 4 mg PO Q6H PRN (Reason: nausea and vomiting) Qty: 14 0RF amoxicillin 500 mg tablet 500 mg PO TID Qty: 21 0RF Referrals: Abdullahi Duenas MD [Primary Care Provider] - In 1 week Problem List Clinical Impression: Epistaxis Patient/Caregiver Discharge Instructions Print Language: Estonian Stand Alone Forms: Kandy Award Info., Patient Portal Info Letter, Work/School Release PA/COURT MAGISTRATE Supervising Physician PA/COURT MAGISTRATE Supervising Physician: Bk Calvo ENP
[2024-03-29 12:35] LABS: Basophils % (Auto) 0 % (0-2.5); Eosinophils # (Auto) 0.2 Thou/mm3 (0.0-0.5); Eosinophils % (Auto) 3 % (0-10); Hematocrit 21.6 % (36.0-46.0); Immature Granulocytes % (Auto) 1 % (0-0); Immature Granulocytes Auto 0.07 Thou/mm3 (0.00-0.00); Lymphocytes # (Auto) 1.9 Thou/mm3 (1.0-4.8); Lymphocytes % (Auto) 23 % (10-50); Mean Corpuscular HGB Conc 33.3 g/dl (31.0-37.0); Mean Corpuscular Hemoglobin 30.1 pg (25.0-35.0); Mean Corpuscular Volume 90 fL (80-100); Monocytes # (Auto) 0.4 Thou/mm3 (0.0-0.8); Monocytes % (Auto) 5 % (0-12); Neutrophils # (Auto) 5.4 Thou/mm3 (1.8-7.7); Neutrophils % (Auto) 67 % (37-80); Nucleated Red Blood Cell # 0.03 Thou/mm3 (0.00-0.00); Nucleated Red Blood Cell % 0 /100 WBC (0); Platelet Count 379 Thou/mm3 (140-440); RDW Standard Deviation 46.9 fL (36.4-46.3); Red Blood Count 2.39 Miln/mm3 (4.00-5.20); White Blood Count 8.1 Thou/mm3 (3.6-11.0)
[2024-03-29 12:37] LABS: Hemoglobin 7.2 g/dL (12.0-16.0)
[2024-03-29] MEDS: TRANEXAMIC ACID INJ 1,000 MG/10 ML VIAL 1000 MG INH (13:11)
[2024-03-29 14:31] VITALS: BP 115/85; PULSE 88; RESP 16; O2SAT 100
--- NOTE | 2024-03-29 14:32 | PC.NURSE ---
PATIENT WITH MEDICATION IN NOSE FOR APPROX 30 MINUTES, NO BLEEDING TO COTTON BALL ON RIGHT SIDE, SMALL AMOUNT OF BLEEDING TO LEFT SIDE. PATIENT STATES SHE FEELS THE BLEEDING PRIOR TO IT STARTING. PROVIDER MADE AWARE.
== END 2024-03-29 16:30 | disposition home or self-care (01) ==
PROVIDERS: Registered Nurse General Practice; Emergency Provider Emergency Medicine; PCP Specialist
DX: R04.0 Epistaxis (principal)
CPT/HCPCS: 36415; 85025; 99283; J3490

== ENCOUNTER → 2024-05-26 | Outpatient (CLI) | payer BC, SELFPAY ==
[2024-05-26 10:18] LABS: Basophils # (Auto) 0.1 Thou/mm3 (0.0-0.2); Basophils % (Auto) 1 % (0-2.5); Eosinophils # (Auto) 0.2 Thou/mm3 (0.0-0.5); Eosinophils % (Auto) 2 % (0-10); Hematocrit 31.4 % (36.0-46.0); Hemoglobin 9.4 g/dL (12.0-16.0); Immature Granulocytes % (Auto) 0 % (0-0); Immature Granulocytes Auto 0.03 Thou/mm3 (0.00-0.00); Immature Reticulocyte Fraction 28.5 % (3.0-15.9); Lymphocytes # (Auto) 1.9 Thou/mm3 (1.0-4.8); Lymphocytes % (Auto) 23 % (10-50); Mean Corpuscular HGB Conc 29.9 g/dl (31.0-37.0); Mean Corpuscular Hemoglobin 22.6 pg (25.0-35.0); Mean Corpuscular Volume 76 fL (80-100); Monocytes # (Auto) 0.4 Thou/mm3 (0.0-0.8); Monocytes % (Auto) 4 % (0-12); Neutrophils # (Auto) 5.6 Thou/mm3 (1.8-7.7); Neutrophils % (Auto) 69 % (37-80); Nucleated Red Blood Cell % 0 /100 WBC (0); Platelet Count 395 Thou/mm3 (140-440); RDW Standard Deviation 44.4 fL (36.4-46.3); Red Blood Count 4.16 Miln/mm3 (4.00-5.20); Reticulocyte % (Auto) 1.3 % (0.5-1.5); Reticulocyte Absolute Auto 55.7 Biln/L (25.0-75.0); Reticulocyte Hgb Content 20.6 pg (28.0-35.0); White Blood Count 8.1 Thou/mm3 (3.6-11.0)
[2024-05-26 10:42] LABS: Albumin, Serum 4.5 gm/dL (3.5-5.0); Anion Gap 8 (7-16); BUN/Creatinine Ratio 13 Ratio (12-20); Blood Urea Nitrogen 9 mg/dL (9-23); Calcium 9.6 mg/dL (8.3-10.6); Calcium (Corrected) 9.6 mg/dL (8.5-10.1); Carbon Dioxide 26.7 mMol/L (20.0-31.0); Chloride 103 mMol/L (98-107); Creatinine (Component) 0.7 mg/dL (0.6-1.3); Glucose 105 mg/dL (74-106); Osmolality,Calculated 274 (275-295); Phosphorous 2.7 mg/dL (2.4-5.1); Potassium 3.9 mMol/L (3.4-5.1); Sodium 138 mMol/L (136-145); eGFR > 60 See Note
[2024-05-26 11:46] LABS: Total Iron Binding Capacity 447 mcg/dL (250-425)
[2024-05-26 11:57] LABS: Iron 24 mcg/dL (50-170); Percent Iron Saturation 5 % (20-55); Unsaturated Iron Binding 423 (225-295)
== END | disposition home or self-care (01) ==
LOC: COPL 08:56
PROVIDERS: PCP Specialist; Referring Provider Specialist; Visit Provider Specialist
DX: R04.0 Epistaxis (principal); D62 Acute posthemorrhagic anemia
CPT/HCPCS: 36415; 80069; 83540; 83550; 85025; 85046

== ENCOUNTER → 2024-07-13 | Outpatient (CLI) | payer BC, SELFPAY ==
--- NOTE | 2024-07-13 11:00 | XR_ITS ---
Examination: CT soft tissue neck, with intravenous contrast. 2-D coronal reconstructions. 2-D sagittal reconstructions. Date and time of exam :July 13, 2024 1134 hrs. Indications: Right-sided neck swelling one year. CTDI: vol (mGy):12.9 DLP: (mGycm):377 Technique: 1.25 mm axial sections of the neck of the obtained. Coronal and sagittal reconstructions have been obtained. Intravenous contrast administered 100 cc Isovue-370. Low dose protocols were performed. One or more of the following dose reduction techniques were used; automated exposure control, adjustment of the mA and/or KV according to patient size, use of iterative reconstruction technique. Findings: Symmetrical optic globes Maxillary antra are clear Symmetrical nasopharynx oropharynx Numerous nonspecific submental carotid triangle lymph nodes No pathologic supraclavicular lymphadenopathy Symmetrical submandibular glands No laryngeal mass Thyroid lobes are not enlarged Normal epiglottis Impression: Nonspecific cervical lymphadenopathy as above, with this study as baseline suggest continued 6 month follow-up ultrasound soft tissue neck as clinically warranted
== END | disposition home or self-care (01) ==
PROVIDERS: Referring Provider Specialist; Visit Provider Specialist
DX: R59.0 Localized enlarged lymph nodes (principal)
CPT/HCPCS: 70491; A4649; Q9967

== ENCOUNTER → 2024-07-16 | Outpatient (CLI) | payer BC, SELFPAY ==
--- NOTE | 2024-07-16 10:46 | XR_ITS ---
Examination: Lumbar spine, 5 views Technique: Lumbar spine AP, lateral, coned lateral lower lumbar spine, bilateral obliques 5 views Exam date and time: July 16, 2024, 10:10 AM Indications: Low back pain 3 months radiating down the legs Findings: Adequate alignment lumbar vertebral bodies. No lumbar fracture. Moderate to advanced disc narrowing L5-S1. No spondylolisthesis. Impression: Moderate to advanced degenerative disc disease L5-S1
[2024-07-16 12:15] LABS: Misc Send Out* See Sep Rpt
[2024-07-16 13:07] LABS: Basophils # (Auto) 0.1 Thou/mm3 (0.0-0.2); Basophils % (Auto) 1 % (0-2.5); Eosinophils # (Auto) 0.2 Thou/mm3 (0.0-0.5); Eosinophils % (Auto) 2 % (0-10); Hematocrit 33.3 % (36.0-46.0); Hemoglobin 10.2 g/dL (12.0-16.0); Immature Granulocytes % (Auto) 0 % (0-0); Immature Granulocytes Auto 0.02 Thou/mm3 (0.00-0.00); Immature Reticulocyte Fraction 23.5 % (3.0-15.9); Lymphocytes # (Auto) 2.4 Thou/mm3 (1.0-4.8); Lymphocytes % (Auto) 27 % (10-50); Mean Corpuscular HGB Conc 30.6 g/dl (31.0-37.0); Mean Corpuscular Hemoglobin 22.3 pg (25.0-35.0); Mean Corpuscular Volume 73 fL (80-100); Monocytes # (Auto) 0.5 Thou/mm3 (0.0-0.8); Monocytes % (Auto) 5 % (0-12); Neutrophils # (Auto) 5.7 Thou/mm3 (1.8-7.7); Neutrophils % (Auto) 65 % (37-80); Nucleated Red Blood Cell % 0 /100 WBC (0); Platelet Count 432 Thou/mm3 (140-440); RDW Standard Deviation 49.3 fL (36.4-46.3); Red Blood Count 4.58 Miln/mm3 (4.00-5.20); Reticulocyte % (Auto) 1.4 % (0.5-1.5); Reticulocyte Absolute Auto 63.7 Biln/L (25.0-75.0); Reticulocyte Hgb Content 29.6 pg (28.0-35.0); White Blood Count 8.9 Thou/mm3 (3.6-11.0)
[2024-07-16 13:24] LABS: Partial Thromboplastin Time 28.5 Seconds (22.0-36.0)
[2024-07-16 14:43] LABS: Alanine Aminotransferase 11 U/L (10-49); Albumin, Serum 4.5 gm/dL (3.5-5.0); Albumin/Globulin Ratio 1.4 (1.2-2.2); Alkaline Phosphatase 106 U/L (46-116); Anion Gap 10 (7-16); Aspartate Amino Transferase 26 U/L (0-34); BUN/Creatinine Ratio 9 Ratio (12-20); Bilirubin,Total 0.8 mg/dL (0.3-1.2); Blood Urea Nitrogen 6 mg/dL (9-23); Calcium 9.9 mg/dL (8.3-10.6); Calcium (Corrected) 9.9 mg/dL (8.5-10.1); Carbon Dioxide 26.3 mMol/L (20.0-31.0); Chloride 105 mMol/L (98-107); Creatinine (Component) 0.7 mg/dL (0.6-1.3); Globulin 3.2 gm/dL (2.3-3.5); Glucose 82 mg/dL (74-106); Osmolality,Calculated 277 (275-295); Potassium 4.2 mMol/L (3.4-5.1); Sodium 141 mMol/L (136-145); Thyroid Stimulating Hormone 2.01 uIU/mL (0.55-4.78); Total Protein 7.7 gm/dL (5.7-8.2); eGFR > 60 See Note
[2024-07-16 14:54] LABS: Cardiac Risk Estimate 4.2 RATIO (3.7-5.6); Cholesterol 247 mg/dL (132-200); HDL Cholesterol 59 mg/dL (40-60); LDL Cholesterol,Calculated 164 mg/dL (0-130); Triglycerides 122 mg/dL (30-150)
[2024-07-16 15:30] LABS: Iron 24 mcg/dL (50-170); Percent Iron Saturation 5 % (20-55); Total Iron Binding Capacity 433 mcg/dL (250-425); Unsaturated Iron Binding 409 (225-295)
[2024-07-21 06:44] LABS: Hexagonal Phase Confirm NEGATIVE (NEGATIVE); PTT-LA Screen 42 seconds (< OR = 40); Protein C Activity* 145 % normal (70-180); Protein C Antigen, Total* 120 % normal (70-140); Protein S Activity* 69 % normal (60-140); Protein S Antigen, Total* 99 % normal (70-140); dRVVT Screen 41 seconds (< OR = 45)
[2024-07-22 06:52] LABS: Antithrombin III, Activity 112 % normal (80-135); Antithrombin III, Antigen 106 % normal (80-120)
== END | disposition home or self-care (01) ==
PROVIDERS: PCP Specialist; Referring Provider Specialist; Visit Provider Specialist
DX: M51.379 Other intervertebral disc degeneration, lumbosacral region without mention of lumbar back pain or lower extremity pain (principal); E61.1 Iron deficiency; D68.9 Coagulation defect, unspecified; E66.01 Morbid (severe) obesity due to excess calories
CPT/HCPCS: 36415; 72110; 80053; 80061; 81291; 83090; 83540; 83550; 84443; 85025; 85046; 85300; 85301; 85302; 85303; 85305; 85306; 85610; 85613; 85730; 86147

== ENCOUNTER → 2024-07-30 | Outpatient (CLI) | payer BC, SELFPAY ==
--- NOTE | 2024-07-30 | XR_ITS ---
Examination: Ultrasound soft tissue extremity right groin TECHNIQUE: Grayscale sonographic images soft tissue right groin Exam date and time: July 30, 2024 1140 hours INDICATIONS: Palpable lump in the right groin on examination several weeks ago. FINDINGS: Multiple nonspecific lymph nodes in the colon regions, the largest on the right side 26 mm on the left side 13 mm IMPRESSION: Nonspecific groin lymphadenopathy
--- NOTE | 2024-07-30 11:00 | XR_ITS ---
Examination: Ultrasound soft tissue clavicles TECHNIQUE: Sonographic images soft tissue about the clavicles Exam date and time: July 30, 2024 1133 hours INDICATIONS: Palpable lumps in the supraclavicular region on examination by physician several weeks ago. FINDINGS: No lymphadenopathy in the supraclavicular regions noted IMPRESSION: No lymphadenopathy noted
--- NOTE | 2024-07-30 12:00 | XR_ITS ---
Examination: Ultrasound soft tissue left axilla TECHNIQUE: Sonographic images soft tissue left axilla Exam date and time: July 30, 2024 1124 hours INDICATIONS: Palpable lumps in the axillary regions on clinical examination by physician several weeks ago. FINDINGS: Bilateral axillary lymph nodes without architectural distortion, the largest on the right side 2.0 cm on the left side 2.8 cm IMPRESSION: Nonpathologic appearing axillary lymph nodes
== END | disposition home or self-care (01) ==
LOC: CDIM 11:00
PROVIDERS: PCP Specialist; Referring Provider Specialist; Visit Provider Specialist
DX: R59.0 Localized enlarged lymph nodes (principal)
CPT/HCPCS: 76604; 76882

== ENCOUNTER → 2024-08-26 | Outpatient (CLI) | payer BC, SELFPAY ==
[2024-08-26 09:44] LABS: Sed Rate (ESR) 37 mm/hr (0-20)
[2024-08-26 10:01] LABS: C-Reactive Protein < 0.5 mg/dL (0.0-0.9)
[2024-08-26 15:53] LABS: RA Screen Negative (Negative)
[2024-09-02 07:03] LABS: ANA Screen, IFA NEGATIVE (NEGATIVE)
== END | disposition home or self-care (01) ==
LOC: COPL 08:16
PROVIDERS: PCP Specialist; Referring Provider Specialist; Visit Provider Specialist
DX: R59.0 Localized enlarged lymph nodes (principal)
CPT/HCPCS: 36415; 85652; 86038; 86140; 86430

== ENCOUNTER → 2024-10-22 | Outpatient (CLI) | payer BC, SELFPAY ==
[2024-10-22 11:02] LABS: Misc Send Out* See Sep Rpt
[2024-10-27 23:33] LABS: Albumin 4.2 g/dL (3.8-4.8); Alpha-1-Globulin 0.3 g/dL (0.2-0.3); Alpha-2-Globulin 0.9 g/dL (0.5-0.9); Beta-1-Globulin 0.5 g/dL (0.4-0.6); Beta-2-globulin 0.5 g/dL (0.2-0.5); Gamma Globulin 1.1 g/dL (0.8-1.7); Kappa Light Chain, Free 29.1 mg/L (3.3-19.4); Lambda Light Chain, Free 28.1 mg/L (5.7-26.3); Sjogren's antibody (SS-A) <1.0 NEG AI (<1.0 NEGATIVE); Sm Antibody <1.0 NEG AI (<1.0 NEGATIVE)
[2024-10-28 06:45] LABS: Complement Component C3* 179 mg/dL (83-193); Complement Component C4c* 45 mg/dL (15-57); DNA (ds) Antibody* <1 IU/mL; Kappa/Lambda, Free Ratio 1.04 (0.26-1.65); Protein, total, serum 7.4 g/dL (6.1-8.1); Scl-70 Antibody* <1.0 NEG AI (<1.0 NEGATIVE); Sjogren's Antibody (SS-B) <1.0 NEG AI (<1.0 NEGATIVE); Sm/RNP Antibody <1.0 NEG AI (<1.0 NEGATIVE)
== END | disposition home or self-care (01) ==
LOC: COPL 10:41
PROVIDERS: PCP Specialist; Referring Provider Internal Medicine; Visit Provider Internal Medicine
DX: J45.909 Unspecified asthma, uncomplicated (principal); K21.9 Gastro-esophageal reflux disease without esophagitis; M25.50 Pain in unspecified joint; R59.1 Generalized enlarged lymph nodes; R76.8 Other specified abnormal immunological findings in serum; Z15.89 Genetic susceptibility to other disease
CPT/HCPCS: 36415; 83521; 84155; 84165; 86160; 86225; 86235; 86880

== ENCOUNTER 2024-12-28 11:15 | Day surgery (SDC) | payer BC, SELFPAY ==
[2024-12-25 14:07] VITALS: BMI 34.7
[2024-12-28] VITALS (9 sets, daily range): BP systolic 128–167; BP diastolic 73–104; PULSE 74–92; RESP 12–20; TEMP 36.3–36.6; O2SAT 94–100; BMI 35.9
[2024-12-28] MEDS: SODIUM CHLORIDE 0.9% 500 ML 500 ML 20 ML IV (11:58)
[2024-12-28] MEDS: ONDANSETRON INJ 2 MG/ML INJ 2 ML 4 MG IVP (12:10)
[2024-12-28] MEDS: BENZOCAINE 20% (Hurricaine) SPRAY 1 DOSE TOP (13:16)
[2024-12-28] MEDS: fentaNYL CIT INJ 50 mCg/ML AMP 2ML (ASD USE ONLY) IVP (13:17)
[2024-12-28] MEDS: MIDAZOLAM INJ 1 MG/ML VIAL 2 ML (ASD USE ONLY) 2 MG IVP (13:17)
== END 2024-12-28 14:05 | disposition home or self-care (01) ==
PROVIDERS: PCP Specialist; Referring Provider Specialist; Visit Provider Specialist
PROC: (CPT 43239; principal; 2024-12-28 11:45)
DX: K29.50 Unspecified chronic gastritis without bleeding (principal); R19.5 Other fecal abnormalities; D62 Acute posthemorrhagic anemia
CPT/HCPCS: 43239; 81025; A4649; J1200; J2250; J2405; J3010; J7999; A9270

== ENCOUNTER → 2025-01-14 | Outpatient (CLI) | payer BC, SELFPAY ==
[2025-01-14 09:18] LABS: Misc Send Out* See Sep Rpt
[2025-01-14 10:09] LABS: Follicle Stimulating Hormone 103.50 mIU/mL (See Note)
[2025-01-27 06:33] LABS: DHEA Sulfate* 7 mcg/dL (19-231); Estradiol, Ultrasensitive* 5 pg/mL; Luteinizing Hormone* 37.4 mIU/mL; Progesterone,LC/MS* <0.1 ng/mL
== END | disposition home or self-care (01) ==
PROVIDERS: PCP Specialist; Referring Provider Specialist; Visit Provider Specialist
DX: N95.1 Menopausal and female climacteric states (principal)
CPT/HCPCS: 36415; 82627; 82670; 83001; 83002; 84144

== ENCOUNTER → 2025-02-08 | Outpatient (CLI) | payer BC, SELFPAY ==
--- NOTE | 2025-02-08 13:00 | XR_ITS ---
Examination: Abdomen sonogram, complete Date and time of exam: February 08, 2025, 1335 hours INDICATIONS: Flank pain mid abdominal pain beginning one year ago. Technique: Multiple real-time grayscale transabdominal sonographic images of the abdomen have been obtained. Findings: Absent gallbladder Common bile duct 0.4 cm Pancreatic head 2.3 cm Aorta not enlarged. Liver 18.5 cm fatty infiltration Normal hepatopedal portal venous flow Patent IVC Right kidney 11.9 cm cortex 1.3 cm Left kidney 11.4 cm cortex 1.9 cm Mild renal scar formation Spleen 11.8 cm IMPRESSION: Normal common bile duct Moderate hepatomegaly fatty infiltration
--- NOTE | 2025-02-08 13:30 | XR_ITS ---
Examination: Pelvic ultrasound, transabdominal, complete Technique: Transabdominal ultrasound of the pelvis performed using grayscale imaging Date and time of exam: February 08, 2025, 1223 hours INDICATIONS: Right-sided pelvic pain one year, MR pelvis November 20, 2023 5 x 4 x 4.8 cm right pelvic cystic mass, prior ultrasound October 13, 2023 complex septated right ovarian cystic mass 5.4 cm FINDINGS: Absent uterus Ovaries obscured by bowel gas IMPRESSION: Study is severely limited by bowel gas
--- NOTE | 2025-02-08 13:30 | XR_ITS ---
Examination: Transvaginal ultrasound of the pelvis, complete Technique: Transvaginal sonographic images pelvis performed using gomez scale imaging Exam date and time: February 08, 2025, 1327 hours INDICATIONS: Transvaginal pelvic sonogram October 23, 2023 complex septated right ovarian cystic mass 5.1 x 3.9 x 5.4 cm FINDINGS: Absent uterus Ovaries obscured by bowel gas IMPRESSION: Study is severely limited secondary to bowel gas.
== END | disposition home or self-care (01) ==
PROVIDERS: PCP Specialist; Referring Provider Specialist; Visit Provider Specialist
DX: K76.0 Fatty (change of) liver, not elsewhere classified (principal); N83.291 Other ovarian cyst, right side
CPT/HCPCS: 76700; 76830; 76856

== ENCOUNTER → 2025-02-23 | Outpatient (CLI) | payer BC, SELFPAY ==
--- NOTE | 2025-02-23 16:30 | XR_ITS ---
Examination: CT abdomen with intravenous contrast CT pelvis with intravenous contrast 2-D coronal reconstructions 2-D sagittal reconstructions Date and time of exam: February 23, 2025, 1941 hours INDICATIONS: Left lower abdominal pain 1 year COMPARISON: May 28, 2019. CTDI: vol (mGy) 14.6 DLP: (mGycm) 881 Technique: Multiple axial sections of the abdomen and pelvis have been obtained. 64 slice high-resolution scanner used. 3 mm axial sections have been obtained, post intravenous injection 60 cc Isovue 370 2-D sagittal, coronal reconstructions obtained. Low dose protocols were performed. One or more of the following dose reduction techniques were used; automated exposure control, adjustment of the mA and/or KV according to patient size, use of iterative reconstruction technique. Findings: No focal liver lesions Splenic calcifications Absent gallbladder No common bile duct stones No pancreatic mass No renal or ureteral calculi, no hydronephrosis Aorta normal size 8 mm fat-containing umbilical hernia Normal appendix No bowel obstruction or diverticulitis Absent uterus No adnexal mass Contracted urinary bladder Mild disc narrowing L5-S1 IMPRESSION: No renal or ureteral calculi, no hydronephrosis Normal appendix No bowel obstruction or diverticulitis No pelvic mass
== END | disposition home or self-care (01) ==
LOC: SCAT 16:10
PROVIDERS: PCP Specialist; Referring Provider Specialist; Visit Provider Specialist
DX: R10.32 Left lower quadrant pain (principal); R10.13 Epigastric pain; R11.0 Nausea
CPT/HCPCS: 74177; A4649; Q9967

== ENCOUNTER → 2025-03-09 | Outpatient (CLI) | payer BC, SELFPAY ==
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
== END | disposition home or self-care (01) ==
PROVIDERS: PCP Specialist; Referring Provider Specialist; Visit Provider Specialist
DX: J32.9 Chronic sinusitis, unspecified (principal)
CPT/HCPCS: 70220